=== PATIENT | male | born 1945 | race Caucasian/White ===

== ENCOUNTER 2019-07-30 13:52 | Emergency (ER) | payer OTHER ==
[2019-07-30 15:55] LABS: BASOPHILS % (AUTO) 0.6 % (0.0-5.0); HEMATOCRIT 46.5 % (42-54); LYMPHOCYTES % (AUTO) 16.8 % (21.0-51.0); MEAN CORPUSCULAR HEMOGLOBIN 29.6 pg (27.0-33.0); MEAN CORPUSCULAR VOLUME 87.1 fL (79-99); MONOCYTES % (AUTO) 5.9 % (3.0-13.0); NEUTROPHILS % (AUTO) 74.3 % (40.0-77.0); PLATELET COUNT (AUTO) 222 K/uL (130-400); RED BLOOD CELL COUNT(AUTO) 5.34 MIL/uL (4.50-6.20); WHITE BLOOD COUNT (AUTO) 8.2 K/uL (4.8-10.8)
[2019-07-30 16:11] LABS: CREATININE 1.1 mg/dL (0.5-1.5); POTASSIUM 3.8 mmol/L (3.5-5.1)
[2019-07-30 16:42] LABS: B-TYPE NATRIURETIC PEPTIDE 96 pg/mL (0-100)
[2019-07-30 17:04] LABS: APPEARANCE,URINE CLEAR (CLEAR); BILIRUBIN,URINE NEGATIVE (NEGATIVE); COLOR,URINE YELLOW (YELLOW); GLUCOSE, URINE (UA) NEGATIVE (NEGATIVE); KETONES,URINE NEGATIVE (NEGATIVE); LEUKOCYTE ESTERASE ,URINE NEGATIVE (NEGATIVE); NITRATE,URINE NEGATIVE (NEGATIVE); OCCULT BLOOD,URINE NEGATIVE (NEGATIVE); PH,URINE 5.5 (5.0-8.0); PROTEIN,URINE NEGATIVE (NEGATIVE); UROBILINOGEN,URINE 0.2 mg/dL (0.2-1.0)
== END 2019-07-30 17:40 | disposition home or self-care (01) ==
LOC: EDH 13:52
DX: I10 Essential (primary) hypertension (principal); Z88.0 Allergy status to penicillin; E78.5 Hyperlipidemia, unspecified; Z87.891 Personal history of nicotine dependence
CPT/HCPCS: 36415; 80048; 81003; 82550; 83880; 84484; 85025; 93005

== ENCOUNTER 2020-09-06 15:00 | Inpatient (IN) | payer OTHER ==
[~2020-09-06] VITALS: Ht 172.7 cm; Wt 82.1 kg
[2020-09-06 15:21] LABS: BASOPHILS % (AUTO) 0.2 % (0.0-5.0); EOSINOPHILS % (AUTO) 0.2 % (0.0-8.0); HEMATOCRIT 43.2 % (42-54); LYMPHOCYTES % (AUTO) 10.2 % (21.0-51.0); MEAN CORPUSCULAR HEMOGLOBIN 29.2 pg (27.0-33.0); MEAN CORPUSCULAR HGB CONC 34.5 g/dL (32.0-36.0); MEAN CORPUSCULAR VOLUME 84.7 fL (79-99); MONOCYTES % (AUTO) 5.3 % (3.0-13.0); NEUTROPHILS % (AUTO) 83.5 % (40.0-77.0); PLATELET COUNT (AUTO) 134 K/uL (130-400); RED CELL DISTRIBUTION WIDTH 13.4 % (11.0-15.5); WHITE BLOOD COUNT (AUTO) 4.7 K/uL (4.8-10.8)
[2020-09-06 15:23] LABS: ABG OXYGEN SATURATION 93.6 % (95.0-99.0); ABG PCO2 28 mmHg (35-48)
[2020-09-06] MEDS ORDERED: ALBUTEROL INHALER 90MCG/INH IH ONE (15:32)
[2020-09-06] MEDS ORDERED: DEXAMETHASONE SOD PHOSPHATE 10MG/ML 1ML VIAL ONE (15:33)
[2020-09-06] MEDS ORDERED: AZITHROMYCIN 500MG+NS 250ML 0 ML IV ONE (15:33)
[2020-09-06] MEDS ORDERED: LEVOFLOXACIN 750 MG/D5W 150 ML 150 ML ONE (15:34)
[2020-09-06 15:39] LABS: CREATININE 1.3 mg/dL (0.5-1.5); POTASSIUM 3.8 mmol/L (3.5-5.1)
[2020-09-06 15:43] LABS: ALBUMIN 3.1 g/dL (3.5-5.0); BILIRUBIN,TOTAL 0.5 mg/dL (0.2-1.0); TOTAL PROTEIN, SERUM 7.6 g/dL (6.0-8.3)
[2020-09-06] MEDS ORDERED: LACTULOSE 20 GM/30 ML UDCUP PO PRN (16:30)
[2020-09-06] MEDS ORDERED: ONDANSETRON 4MG INJ IV PRN (16:30)
[2020-09-06] MEDS ORDERED: ERGOCALCIFEROL (VITAMIN D2) 50,000 UNIT CAPSULE PO ONE (16:30)
[2020-09-06] MEDS ORDERED: ACETAMINOPHEN 325 MG TAB PO PRN ×2 (16:30)
[2020-09-06] MEDS: DEXAMETHASONE SOD PHOSPHATE 4 MG/ML 1ML VIAL IVP SCH (16:30)
[2020-09-06 16:43] LABS: PROTHROMBIN TIME 10.9 SEC (9.6-11.6)
[2020-09-06 16:45] LABS: PARTIAL THROMBOPLASTIN TIME 31.6 SEC (26.3-35.5)
[2020-09-06] MEDS ORDERED: PHARMACY COMMUNICATION MISC SCH (16:45)
[2020-09-06] MEDS: AZITHROMYCIN 500MG+NS 250ML 250 ML IV SCH (16:45)
[2020-09-06 16:48] LABS: CRP QUANTITATIVE 133.3 mg/L (0.00-9.0)
[2020-09-06] MEDS ORDERED: AZITHROMYCIN 500MG+NS 250ML 250 ML IV ONE (17:19)
[2020-09-06] MEDS ORDERED: ERGOCALCIFEROL (VITAMIN D2) 50,000 UNIT CAPSULE ONE (17:19)
[2020-09-06] MEDS ORDERED: IOHEXOL 350 MG/ML 100ML INFUS..BTL IV ONE (17:32)
[2020-09-06] MEDS ORDERED: COMPOUND IV REFRIGERATED 1 EACH IVSOLN MISC PRN (18:00)
[2020-09-06] MEDS ORDERED: REMDESIVIR (EUA) 520 200 MG in 0.9% NACL 250ML 250 ML IV ONE (18:00)
[2020-09-06 18:23] LABS: APPEARANCE,URINE Clear (CLEAR); BILIRUBIN,URINE Negative (NEGATIVE); COLOR,URINE Dark Yellow (YELLOW); GLUCOSE, URINE (UA) Negative (NEGATIVE); KETONES,URINE Negative (NEGATIVE); LEUKOCYTE ESTERASE ,URINE Negative (NEGATIVE); NITRATE,URINE Negative (NEGATIVE); OCCULT BLOOD,URINE Negative (NEGATIVE); PROTEIN,URINE Negative (NEGATIVE); UROBILINOGEN,URINE 0.2 mg/dL (0.2-1.0)
[2020-09-06 19:35] VITALS: BP 133/75
[2020-09-06] MEDS: FAMOTIDINE 20MG TAB PO SCH (21:02)
[2020-09-06] MEDS: DOXYCYCLINE HYCLATE 100 MG TABLET PO SCH (21:02)
[2020-09-06 23:24] VITALS: BP 119/65
[2020-09-07 03:47] VITALS: BP 108/68
[2020-09-07] MEDS: REMDESIVIR LABS MISC SCH (06:00)
[2020-09-07 06:03] LABS: HEMATOCRIT 41.7 % (42-54); MEAN CORPUSCULAR HEMOGLOBIN 29.2 pg (27.0-33.0); MEAN CORPUSCULAR HGB CONC 34.1 g/dL (32.0-36.0); MEAN CORPUSCULAR VOLUME 85.8 fL (79-99); MONOCYTES % (AUTO) 5.5 % (3.0-13.0); NEUTROPHILS % (AUTO) 79.5 % (40.0-77.0); PLATELET COUNT (AUTO) 141 K/uL (130-400); RED BLOOD CELL COUNT(AUTO) 4.86 MIL/uL (4.50-6.20); RED CELL DISTRIBUTION WIDTH 13.6 % (11.0-15.5); WHITE BLOOD COUNT (AUTO) 2.5 K/uL (4.8-10.8)
[2020-09-07 06:30] LABS: ALBUMIN 2.8 g/dL (3.5-5.0); BILIRUBIN,TOTAL 0.4 mg/dL (0.2-1.0); CREATININE 1.3 mg/dL (0.5-1.5); CRP QUANTITATIVE 122.1 mg/L (0.00-9.0); TOTAL PROTEIN, SERUM 7.2 g/dL (6.0-8.3)
[2020-09-07 07:04] LABS: BAND NEUTROPHILS % (MANUAL) 3 % (0-2); LYMPHOCYTES % (MANUAL) 6 % (22-44); MONOCYTES % (MANUAL) 8 % (2-9); SEGMENTED NEUTROPHILS % 83 % (40-70)
[2020-09-07 07:05] LABS: MAN.DIFF COMMENT-IMPRESSION MANUAL DIFFERENTIAL
[2020-09-07 07:06] LABS: PLATELET MORPHOLOGY COMMENT SLIGHTLY DECREASED
[2020-09-07 08:05] VITALS: BP 129/68
[2020-09-07] MEDS: DOXYCYCLINE HYCLATE 100 MG TABLET PO SCH (08:44)
[2020-09-07] MEDS: ASCORBIC ACID 500 MG TAB PO SCH (08:44)
[2020-09-07] MEDS: ENOXAPARIN SODIUM 40 MG/0.4 ML SYRINGE SQ SCH (08:45)
[2020-09-07] MEDS ORDERED: ENOXAPARIN SODIUM 40 MG/0.4 ML SYRINGE SQ SCH (09:00)
[2020-09-07] MEDS: ZINC SULFATE 220 CAPSULE PO SCH (12:07)
[2020-09-07 12:15] VITALS: BP 134/76
[2020-09-07] MEDS: CEFTRIAXONE 1G VIAL IVP SCH (14:51)
[2020-09-07] MEDS: AZITHROMYCIN 500MG+NS 250ML 250 ML IV SCH (15:52)
[2020-09-07] MEDS: DEXAMETHASONE SOD PHOSPHATE 4 MG/ML 1ML VIAL IVP SCH (15:52)
[2020-09-07 16:26] VITALS: BP 121/72
[2020-09-07] MEDS: REMDESIVIR (EUA) 520 100 MG in 0.9% NACL 250ML 250 ML IV SCH (17:28)
[2020-09-07] MEDS ORDERED: HYDR25TA PO (18:30)
[2020-09-07] MEDS ORDERED: LOSA50TA64 PO (18:30)
[2020-09-07] MEDS ORDERED: SIMV-43 PO (18:30)
[2020-09-07 19:55] VITALS: BP 123/75
[2020-09-07] MEDS: FAMOTIDINE 20MG TAB PO SCH (20:41)
[2020-09-07 23:35] VITALS: BP 120/72
[2020-09-08 03:52] VITALS: BP 112/70
[2020-09-08 05:44] LABS: HEMATOCRIT 43.4 % (42-54); LYMPHOCYTES % (AUTO) 10.6 % (21.0-51.0); MEAN CORPUSCULAR HEMOGLOBIN 28.8 pg (27.0-33.0); MEAN CORPUSCULAR HGB CONC 33.4 g/dL (32.0-36.0); MEAN CORPUSCULAR VOLUME 86.1 fL (79-99); MONOCYTES % (AUTO) 6.6 % (3.0-13.0); NEUTROPHILS % (AUTO) 82.1 % (40.0-77.0); PLATELET COUNT (AUTO) 190 K/uL (130-400); RED BLOOD CELL COUNT(AUTO) 5.04 MIL/uL (4.50-6.20); RED CELL DISTRIBUTION WIDTH 13.7 % (11.0-15.5); WHITE BLOOD COUNT (AUTO) 5.8 K/uL (4.8-10.8)
[2020-09-08] MEDS: REMDESIVIR LABS MISC SCH (06:00)
[2020-09-08 06:09] LABS: ALBUMIN 2.9 g/dL (3.5-5.0); BILIRUBIN,TOTAL 0.4 mg/dL (0.2-1.0); CREATININE 1.3 mg/dL (0.5-1.5); CRP QUANTITATIVE 53.5 mg/L (0.00-9.0); POTASSIUM 3.9 mmol/L (3.5-5.1); TOTAL PROTEIN, SERUM 7.2 g/dL (6.0-8.3)
[2020-09-08 08:04] VITALS: BP 108/60
[2020-09-08] MEDS: ASCORBIC ACID 500 MG TAB PO SCH (08:52)
[2020-09-08] MEDS: ENOXAPARIN SODIUM 40 MG/0.4 ML SYRINGE SQ SCH (08:53)
[2020-09-08] MEDS ORDERED: IPRATROPIUM/ALBUTEROL SULFATE 3 ML SOLUTION IH PRN (11:00)
[2020-09-08] MEDS: ZINC SULFATE 220 CAPSULE PO SCH (12:26)
[2020-09-08 12:43] VITALS: BP 125/76
[2020-09-08] MEDS: CEFTRIAXONE 1G VIAL IVP SCH (14:50)
[2020-09-08] MEDS: DEXAMETHASONE SOD PHOSPHATE 4 MG/ML 1ML VIAL IVP SCH (15:40)
[2020-09-08 16:54] VITALS: BP 127/68
[2020-09-08] MEDS: REMDESIVIR (EUA) 520 100 MG in 0.9% NACL 250ML 250 ML IV SCH (17:06)
[2020-09-08] MEDS: BUDESONIDE 0.5 MG/2 ML INH IH SCH (17:32)
[2020-09-08] MEDS ORDERED: BUDESONIDE 0.5 MG/2 ML INH IH SCH (18:00)
[2020-09-08 20:19] VITALS: BP 125/68
[2020-09-08] MEDS: FAMOTIDINE 20MG TAB PO SCH (20:45)
[2020-09-08 23:42] VITALS: BP_SYST 123; BP_SYST 130; BP_DIAS 70; BP_DIAS 71
[2020-09-09 03:45] VITALS: BP 113/66
[2020-09-09 05:27] LABS: BASOPHILS % (AUTO) 0.2 % (0.0-5.0); HEMATOCRIT 40.8 % (42-54); LYMPHOCYTES % (AUTO) 8.6 % (21.0-51.0); MEAN CORPUSCULAR HGB CONC 33.6 g/dL (32.0-36.0); MEAN CORPUSCULAR VOLUME 86.4 fL (79-99); MONOCYTES % (AUTO) 7.1 % (3.0-13.0); NEUTROPHILS % (AUTO) 83.5 % (40.0-77.0); PLATELET COUNT (AUTO) 201 K/uL (130-400); RED BLOOD CELL COUNT(AUTO) 4.72 MIL/uL (4.50-6.20); RED CELL DISTRIBUTION WIDTH 13.6 % (11.0-15.5); WHITE BLOOD COUNT (AUTO) 6.3 K/uL (4.8-10.8)
[2020-09-09 05:43] LABS: ALBUMIN 2.6 g/dL (3.5-5.0); BILIRUBIN,TOTAL 0.4 mg/dL (0.2-1.0); CRP QUANTITATIVE 25.2 mg/L (0.00-9.0); POTASSIUM 3.8 mmol/L (3.5-5.1); TOTAL PROTEIN, SERUM 6.4 g/dL (6.0-8.3)
[2020-09-09] MEDS: BUDESONIDE 0.5 MG/2 ML INH IH SCH ×2 (06:00→15:52)
[2020-09-09] MEDS: REMDESIVIR LABS MISC SCH (06:00)
[2020-09-09 08:41] VITALS: BP 132/70
[2020-09-09] MEDS: AZITHROMYCIN 250 MG TABLET PO SCH (09:41)
[2020-09-09] MEDS: ASCORBIC ACID 500 MG TAB PO SCH (09:41)
[2020-09-09] MEDS: ENOXAPARIN SODIUM 40 MG/0.4 ML SYRINGE SQ SCH (09:42)
[2020-09-09] MEDS: CEFTRIAXONE 1G VIAL IVP SCH (13:12)
[2020-09-09] MEDS: ZINC SULFATE 220 CAPSULE PO SCH (13:12)
[2020-09-09 13:19] VITALS: BP 136/74
[2020-09-09] MEDS: DEXAMETHASONE SOD PHOSPHATE 4 MG/ML 1ML VIAL IVP SCH (15:52)
[2020-09-09 16:58] VITALS: BP 149/91
[2020-09-09] MEDS: REMDESIVIR (EUA) 520 100 MG in 0.9% NACL 250ML 250 ML IV SCH (18:10)
[2020-09-09 20:19] VITALS: BP 134/65
[2020-09-09] MEDS: FAMOTIDINE 20MG TAB PO SCH (21:24)
[2020-09-09 23:53] VITALS: BP 146/81
[2020-09-10 03:17] VITALS: BP 132/77
[2020-09-10 05:16] LABS: BASOPHILS % (AUTO) 0.2 % (0.0-5.0); HEMATOCRIT 40.8 % (42-54); MEAN CORPUSCULAR HEMOGLOBIN 28.6 pg (27.0-33.0); MEAN CORPUSCULAR HGB CONC 33.1 g/dL (32.0-36.0); MEAN CORPUSCULAR VOLUME 86.4 fL (79-99); MONOCYTES % (AUTO) 5.5 % (3.0-13.0); NEUTROPHILS % (AUTO) 84.5 % (40.0-77.0); PLATELET COUNT (AUTO) 208 K/uL (130-400); RED BLOOD CELL COUNT(AUTO) 4.72 MIL/uL (4.50-6.20); RED CELL DISTRIBUTION WIDTH 13.5 % (11.0-15.5); WHITE BLOOD COUNT (AUTO) 6.6 K/uL (4.8-10.8)
[2020-09-10 05:33] LABS: ALBUMIN 2.6 g/dL (3.5-5.0); BILIRUBIN,DIRECT 0.1 mg/dL (0.0-0.3); BILIRUBIN,TOTAL 0.5 mg/dL (0.2-1.0); CREATININE 1.1 mg/dL (0.5-1.5); TOTAL PROTEIN, SERUM 6.5 g/dL (6.0-8.3)
[2020-09-10] MEDS: BUDESONIDE 0.5 MG/2 ML INH IH SCH (06:00)
[2020-09-10] MEDS: REMDESIVIR LABS MISC SCH (06:00)
[2020-09-10 08:31] VITALS: BP 152/76
[2020-09-10] MEDS: AZITHROMYCIN 250 MG TABLET PO SCH (08:33)
[2020-09-10] MEDS: ASCORBIC ACID 500 MG TAB PO SCH (08:33)
[2020-09-10] MEDS: ENOXAPARIN SODIUM 40 MG/0.4 ML SYRINGE SQ SCH (08:34)
[2020-09-10 12:13] VITALS: BP 136/80
[2020-09-10] MEDS: CEFTRIAXONE 1G VIAL IVP SCH (12:52)
[2020-09-10] MEDS: ZINC SULFATE 220 CAPSULE PO SCH (12:52)
[2020-09-10 16:13] VITALS: BP 137/82
[2020-09-10] MEDS: REMDESIVIR (EUA) 520 100 MG in 0.9% NACL 250ML 250 ML IV SCH (16:33)
[2020-09-10] MEDS: DEXAMETHASONE SOD PHOSPHATE 4 MG/ML 1ML VIAL IVP SCH (16:33)
[2020-09-10 19:39] VITALS: BP 117/72
[2020-09-10] MEDS: FAMOTIDINE 20MG TAB PO SCH (20:59)
[2020-09-10 23:41] VITALS: BP 105/70
[2020-09-11 03:32] VITALS: BP 124/72
[2020-09-11] MEDS: BUDESONIDE 0.5 MG/2 ML INH IH SCH (06:00)
[2020-09-11] MEDS: REMDESIVIR LABS MISC SCH (06:00)
[2020-09-11 06:15] LABS: BASOPHILS % (AUTO) 0.5 % (0.0-5.0); HEMATOCRIT 41.5 % (42-54); LYMPHOCYTES % (AUTO) 11.1 % (21.0-51.0); MEAN CORPUSCULAR HGB CONC 33.7 g/dL (32.0-36.0); MEAN CORPUSCULAR VOLUME 85.9 fL (79-99); MONOCYTES % (AUTO) 6.1 % (3.0-13.0); NEUTROPHILS % (AUTO) 80.3 % (40.0-77.0); PLATELET COUNT (AUTO) 250 K/uL (130-400); RED BLOOD CELL COUNT(AUTO) 4.83 MIL/uL (4.50-6.20); RED CELL DISTRIBUTION WIDTH 13.3 % (11.0-15.5); WHITE BLOOD COUNT (AUTO) 6.4 K/uL (4.8-10.8)
[2020-09-11 06:32] LABS: ALBUMIN 2.7 g/dL (3.5-5.0); BILIRUBIN,TOTAL 0.7 mg/dL (0.2-1.0); CREATININE 1.1 mg/dL (0.5-1.5); CRP QUANTITATIVE 24.1 mg/L (0.00-9.0); POTASSIUM 3.8 mmol/L (3.5-5.1); TOTAL PROTEIN, SERUM 6.6 g/dL (6.0-8.3)
[2020-09-11 08:00] VITALS: BP 141/71
[2020-09-11] MEDS: AZITHROMYCIN 250 MG TABLET PO SCH (08:58)
[2020-09-11] MEDS: ENOXAPARIN SODIUM 40 MG/0.4 ML SYRINGE SQ SCH (08:58)
[2020-09-11 12:00] VITALS: BP 123/75
[2020-09-11] MEDS ORDERED: BUDE90AE IH (13:07)
[2020-09-11] MEDS ORDERED: DEXA6TAB PO (13:07)
[2020-09-11] MEDS ORDERED: AZIT250T PO (13:07)
[2020-09-11] MEDS ORDERED: APIX2.5T PO (13:07)
[2020-09-11] MEDS ORDERED: PANT40TA55 PO (13:19)
== END 2020-09-11 16:11 | disposition home or self-care (01) | DRG 871 ==
LOC: EDH 15:00 → EDHIP 16:27 → 2AH 18:45
PROVIDERS: ADMIT Internal Medicine; ATTEND Internal Medicine
PROC: XW033E5 Introduction of Remdesivir Anti-infective into Peripheral Vein, Percutaneous Approach, New Technology Group 5 (ICD-10-PCS; principal; 2020-09-06)
PROC: 5A09357 Assistance with Respiratory Ventilation, Less than 24 Consecutive Hours, Continuous Positive Airway Pressure (ICD-10-PCS; 2020-09-07)
PROC: 5A0935A Assistance with Respiratory Ventilation, Less than 24 Consecutive Hours, High Flow/Velocity Cannula (ICD-10-PCS; 2020-09-08)
DX: A41.89 Other specified sepsis (principal); U07.1 COVID-19; J12.82 Pneumonia due to coronavirus disease 2019; J96.21 Acute and chronic respiratory failure with hypoxia; J44.0 Chronic obstructive pulmonary disease with (acute) lower respiratory infection; E87.1 Hypo-osmolality and hyponatremia; J44.1 Chronic obstructive pulmonary disease with (acute) exacerbation; G47.33 Obstructive sleep apnea (adult) (pediatric); N18.30 Chronic kidney disease, stage 3 unspecified; I12.9 Hypertensive chronic kidney disease with stage 1 through stage 4 chronic kidney disease, or unspecified chronic kidney disease; D72.810 Lymphocytopenia; E66.9 Obesity, unspecified; K44.9 Diaphragmatic hernia without obstruction or gangrene; R91.1 Solitary pulmonary nodule; E78.5 Hyperlipidemia, unspecified; N40.0 Benign prostatic hyperplasia without lower urinary tract symptoms; Z87.891 Personal history of nicotine dependence; Z88.0 Allergy status to penicillin; Z68.35 Body mass index [BMI] 35.0-35.9, adult
CPT/HCPCS: 36415; 36600; 71045; 71275; 80048; 80053; 80076; 81003; 82550; 82728; 82803; 82948; 83605; 83615; 83690; 83880; 84145; 84484; 85025; 85378; 85610; 85730; 86140; 86900; 86901; 87040; 87426; 87486; 87581; 87633; 87798; 93005; 94760; G0378; J0456; J0696; J1100; J1650; J1956; J7050; Q9967

== ENCOUNTER 2020-09-20 02:04 | Inpatient (IN) | payer MEDICARE, OTHER ==
[~2020-09-20] VITALS: Ht 172.7 cm; Wt 79.1 kg
[~2020-09-20 02:04] MED LIST: APIX2.5T PO; AZIT250T PO; BUDE90AE IH; DEXA6TAB PO; LOSA50TA64 PO; PANT40TA55 PO; SIMV-43 PO
[2020-09-20 02:42] LABS: BASOPHILS % (AUTO) 0.4 % (0.0-5.0); LYMPHOCYTES % (AUTO) 6.6 % (21.0-51.0); MEAN CORPUSCULAR HEMOGLOBIN 29.7 pg (27.0-33.0); MEAN CORPUSCULAR VOLUME 87.4 fL (79-99); MONOCYTES % (AUTO) 6.9 % (3.0-13.0); NEUTROPHILS % (AUTO) 84.2 % (40.0-77.0); PLATELET COUNT (AUTO) 334 K/uL (130-400); RED BLOOD CELL COUNT(AUTO) 5.49 MIL/uL (4.50-6.20); RED CELL DISTRIBUTION WIDTH 14.1 % (11.0-15.5); WHITE BLOOD COUNT (AUTO) 24.2 K/uL (4.8-10.8)
[2020-09-20 02:53] LABS: INR 1.17 (0.85-1.15); PROTHROMBIN TIME 12.6 SEC (9.6-11.6)
[2020-09-20 02:54] LABS: PARTIAL THROMBOPLASTIN TIME 30.7 SEC (26.3-35.5)
[2020-09-20 02:55] LABS: CREATININE 1.8 mg/dL (0.5-1.5); POTASSIUM 3.9 mmol/L (3.5-5.1)
[2020-09-20] MEDS ORDERED: DILTIAZEM 50MG VIAL IV ONE (02:58)
[2020-09-20 02:59] LABS: ALBUMIN 2.8 g/dL (3.5-5.0); BILIRUBIN,TOTAL 1.9 mg/dL (0.2-1.0); TOTAL PROTEIN, SERUM 7.4 g/dL (6.0-8.3)
[2020-09-20 03:30] LABS: CRP QUANTITATIVE 203.5 mg/L (0.00-9.0)
[2020-09-20] MEDS ORDERED: IOHEXOL 350 MG/ML 100ML INFUS..BTL IV ONE (03:35)
[2020-09-20] MEDS ORDERED: 0.9%NACL 1000ML 1,000 ML IV ONE (03:38)
[2020-09-20] MEDS ORDERED: MIDAZOLAM HCL 1 MG/ML 2ML VIAL ONE (03:39)
[2020-09-20] MEDS ORDERED: AMIODARONE 150MG VIAL ONE ×3 (04:04→04:09)
[2020-09-20 07:15] LABS: APPEARANCE,URINE Clear (CLEAR); BILIRUBIN,URINE Negative (NEGATIVE); COLOR,URINE Yellow (YELLOW); GLUCOSE, URINE (UA) Negative (NEGATIVE); KETONES,URINE Trace mg/dL (NEGATIVE); LEUKOCYTE ESTERASE ,URINE Negative (NEGATIVE); NITRATE,URINE Negative (NEGATIVE); OCCULT BLOOD,URINE Negative (NEGATIVE); PROTEIN,URINE Negative (NEGATIVE)
[2020-09-20 07:32] LABS: HEMOGLOBIN A1C 6.1 % (4.0-6.0)
[2020-09-20 07:48] LABS: MAGNESIUM 2.1 mg/dL (1.80-2.40)
[2020-09-20 07:49] LABS: THYROID STIMULATING HORMONE 1.59 uIU/mL (0.36-3.74)
[2020-09-20 08:01] LABS: BACTERIA,URINE Rare /HPF (None Seen); RBC,URINE None Seen /HPF (0-1); WBC,URINE 0-1 /HPF (0-1)
[2020-09-20] MEDS ORDERED: FAMOTIDINE 20MG VIAL IV ONE (08:38)
[2020-09-20] MEDS ORDERED: METOPROLOL TARTRATE 25 MG TAB ONE (08:38)
[2020-09-20] MEDS: METOPROLOL TARTRATE 25 MG TAB PO SCH ×2 (09:00→19:54)
[2020-09-20 15:14] VITALS: BP 105/62
[2020-09-20] MEDS ORDERED: HYDR12.54 PO (16:07)
[2020-09-20] MEDS: APIXABAN 5 MG TABLET PO SCH ×2 (17:13→19:54)
[2020-09-20] MEDS: FAMOTIDINE 20MG VIAL IV SCH (17:18)
[2020-09-20] MEDS: AMIODARONE 900MG VIAL 900 MG in DEXTROSE 5%-WATER 500 ML IV SCH (18:31)
[2020-09-20] MEDS: AMIODARONE 200 MG TABLET PO SCH (19:54)
[2020-09-20] MEDS: ATORVASTATIN 20 MG TABLET PO SCH (19:54)
[2020-09-20 20:00] VITALS: BP 143/73
[2020-09-21] VITALS (7 sets, daily range): BP systolic 100–127; BP diastolic 57–74
[2020-09-21 06:00] LABS: BASOPHILS % (AUTO) 0.1 % (0.0-5.0); EOSINOPHILS % (AUTO) 0.4 % (0.0-8.0); HEMATOCRIT 37.5 % (42-54); LYMPHOCYTES % (AUTO) 6.4 % (21.0-51.0); MEAN CORPUSCULAR HGB CONC 32.8 g/dL (32.0-36.0); MEAN CORPUSCULAR VOLUME 88.4 fL (79-99); MONOCYTES % (AUTO) 8.4 % (3.0-13.0); NEUTROPHILS % (AUTO) 83.6 % (40.0-77.0); PLATELET COUNT (AUTO) 203 K/uL (130-400); RED BLOOD CELL COUNT(AUTO) 4.24 MIL/uL (4.50-6.20); RED CELL DISTRIBUTION WIDTH 13.9 % (11.0-15.5); WHITE BLOOD COUNT (AUTO) 16.1 K/uL (4.8-10.8)
[2020-09-21 06:24] LABS: CARBON DIOXIDE 25 mmol/L (21-32); CHLORIDE 105 mmol/L (101-111); CREATINE KINASE, TOTAL 59 U/L (21-232); CREATININE 1.3 mg/dL (0.5-1.5); GLOMERULAR FILTR. RATE CALC 57 mL/min (>60); GLUCOSE,RANDOM 106 mg/dL (70-105); MYOGLOBIN 71 ng/mL (10-92); POTASSIUM 3.9 mmol/L (3.5-5.1); SODIUM SERUM 139 mmol/L (136-145); TROPONIN I < 0.04 ng/mL (0.00-0.06); UREA NITROGEN, BLOOD 22 mg/dL (7-18)
[2020-09-21 06:34] LABS: B-TYPE NATRIURETIC PEPTIDE 331 pg/mL (0-100)
[2020-09-21] MEDS: APIXABAN 5 MG TABLET PO SCH ×2 (08:00→21:11)
[2020-09-21] MEDS: AMIODARONE 200 MG TABLET PO SCH ×2 (08:00→21:11)
[2020-09-21] MEDS: METOPROLOL TARTRATE 25 MG TAB PO SCH ×2 (08:01→21:11)
[2020-09-21] MEDS: FAMOTIDINE 20MG VIAL IV SCH (08:01)
[2020-09-21] MEDS ORDERED: APIX5TAB PO (08:45)
[2020-09-21] MEDS ORDERED: FUROSEMIDE 20MG VIAL IV SCH (09:00)
[2020-09-21] MEDS ORDERED: KCL 20 MEQ ERTAB PO SCH (09:00)
[2020-09-21] MEDS: PHARMACY COMMUNICATION MISC SCH ×2 (17:00→21:12)
[2020-09-21] MEDS: TROLAMINE SALICYLATE CREAM 85 GM TUBE TP PRN (18:01)
[2020-09-21] MEDS: AMIODARONE 900MG VIAL 900 MG in DEXTROSE 5%-WATER 500 ML IV SCH (18:02)
[2020-09-21] MEDS: ATORVASTATIN 20 MG TABLET PO SCH (21:11)
[2020-09-22] MEDS: TROLAMINE SALICYLATE CREAM 85 GM TUBE TP PRN (02:19)
[2020-09-22 04:20] VITALS: BP 112/66
[2020-09-22 04:23] LABS: HEMATOCRIT 38.9 % (42-54); MEAN CORPUSCULAR HEMOGLOBIN 29.6 pg (27.0-33.0); MEAN CORPUSCULAR HGB CONC 33.7 g/dL (32.0-36.0); RED BLOOD CELL COUNT(AUTO) 4.42 MIL/uL (4.50-6.20); RED CELL DISTRIBUTION WIDTH 13.7 % (11.0-15.5); WHITE BLOOD COUNT (AUTO) 15.6 K/uL (4.8-10.8)
[2020-09-22 04:41] LABS: CREATININE 1.3 mg/dL (0.5-1.5); POTASSIUM 3.9 mmol/L (3.5-5.1); URIC ACID 6.2 mg/dL (2.6-7.2)
[2020-09-22] MEDS: PHARMACY COMMUNICATION MISC SCH ×4 (05:00→21:13)
[2020-09-22 05:20] LABS: CRP QUANTITATIVE 247.1 mg/L (0.00-9.0)
[2020-09-22] MEDS: KETOROLAC 30MG VIAL (30MG/ML) IV PRN (05:48)
[2020-09-22 07:52] VITALS: BP 92/54
[2020-09-22] MEDS: FAMOTIDINE 20MG VIAL IV SCH (09:00)
[2020-09-22] MEDS: AMIODARONE 200 MG TABLET PO SCH ×2 (09:00→21:12)
[2020-09-22] MEDS: APIXABAN 5 MG TABLET PO SCH ×3 (09:01→21:13)
[2020-09-22] MEDS: METOPROLOL TARTRATE 25 MG TAB PO SCH ×2 (09:01→21:13)
[2020-09-22 11:08] VITALS: BP 94/57
[2020-09-22 16:00] VITALS: BP 95/47
[2020-09-22 19:00] VITALS: BP 96/58
[2020-09-22] MEDS: ATORVASTATIN 20 MG TABLET PO SCH (21:12)
[2020-09-23] VITALS: BP 101/60
[2020-09-23 04:00] VITALS: BP 95/50
[2020-09-23] MEDS: PHARMACY COMMUNICATION MISC SCH ×2 (05:00→23:00)
[2020-09-23 05:12] LABS: BASOPHILS % (AUTO) 0.2 % (0.0-5.0); EOSINOPHILS % (AUTO) 0.4 % (0.0-8.0); HEMATOCRIT 40.6 % (42-54); LYMPHOCYTES % (AUTO) 6.6 % (21.0-51.0); MEAN CORPUSCULAR HEMOGLOBIN 28.6 pg (27.0-33.0); MEAN CORPUSCULAR HGB CONC 32.8 g/dL (32.0-36.0); MEAN CORPUSCULAR VOLUME 87.3 fL (79-99); MONOCYTES % (AUTO) 6.8 % (3.0-13.0); NEUTROPHILS % (AUTO) 85.1 % (40.0-77.0); PLATELET COUNT (AUTO) 249 K/uL (130-400); RED BLOOD CELL COUNT(AUTO) 4.65 MIL/uL (4.50-6.20); RED CELL DISTRIBUTION WIDTH 14.1 % (11.0-15.5); WHITE BLOOD COUNT (AUTO) 15.3 K/uL (4.8-10.8)
[2020-09-23 05:26] LABS: CREATININE 1.5 mg/dL (0.5-1.5); POTASSIUM 3.7 mmol/L (3.5-5.1)
[2020-09-23] MEDS: APIXABAN 5 MG TABLET PO SCH (08:18)
[2020-09-23] MEDS: METOPROLOL TARTRATE 25 MG TAB PO SCH (08:18)
[2020-09-23] MEDS: FAMOTIDINE 20MG VIAL IV SCH (08:18)
[2020-09-23] MEDS: AMIODARONE 200 MG TABLET PO SCH ×4 (08:19→15:34)
[2020-09-23 08:46] VITALS: BP 111/69
[2020-09-23] MEDS: KETOROLAC 30MG VIAL (30MG/ML) IV PRN (10:24)
[2020-09-23 12:07] VITALS: BP 95/53
[2020-09-23 16:00] VITALS: BP 93/55
[2020-09-23 19:00] VITALS: BP 111/63
[2020-09-24] VITALS: BP 116/69
[2020-09-24] MEDS: METOPROLOL TARTRATE 25 MG TAB PO SCH ×3 (00:09→20:28)
[2020-09-24] MEDS: APIXABAN 5 MG TABLET PO SCH ×3 (00:10→20:28)
[2020-09-24] MEDS: ATORVASTATIN 20 MG TABLET PO SCH ×2 (00:10→20:28)
[2020-09-24] MEDS: AMIODARONE 200 MG TABLET PO SCH ×4 (00:10→20:28)
[2020-09-24] MEDS: PHARMACY COMMUNICATION MISC SCH ×6 (00:10→23:01)
[2020-09-24 03:56] LABS: BASOPHILS % (AUTO) 0.3 % (0.0-5.0); EOSINOPHILS % (AUTO) 2.7 % (0.0-8.0); HEMATOCRIT 37.4 % (42-54); LYMPHOCYTES % (AUTO) 9.8 % (21.0-51.0); MEAN CORPUSCULAR HEMOGLOBIN 28.9 pg (27.0-33.0); MEAN CORPUSCULAR HGB CONC 33.4 g/dL (32.0-36.0); MEAN CORPUSCULAR VOLUME 86.4 fL (79-99); MONOCYTES % (AUTO) 6.4 % (3.0-13.0); NEUTROPHILS % (AUTO) 80.3 % (40.0-77.0); PLATELET COUNT (AUTO) 217 K/uL (130-400); RED BLOOD CELL COUNT(AUTO) 4.33 MIL/uL (4.50-6.20); RED CELL DISTRIBUTION WIDTH 13.9 % (11.0-15.5); WHITE BLOOD COUNT (AUTO) 10.6 K/uL (4.8-10.8)
[2020-09-24 04:00] VITALS: BP 94/60
[2020-09-24 04:18] LABS: ALBUMIN 1.7 g/dL (3.5-5.0); B-TYPE NATRIURETIC PEPTIDE 779 pg/mL (0-100); BILIRUBIN,TOTAL 0.8 mg/dL (0.2-1.0); CREATININE 1.4 mg/dL (0.5-1.5); POTASSIUM 3.6 mmol/L (3.5-5.1); TOTAL PROTEIN, SERUM 6.5 g/dL (6.0-8.3)
[2020-09-24 04:26] LABS: CRP QUANTITATIVE 271.6 mg/L (0.00-9.0)
[2020-09-24 07:59] VITALS: BP 114/64
[2020-09-24] MEDS: FAMOTIDINE 20MG VIAL IV SCH (08:39)
[2020-09-24 09:52] LABS: INR 1.22 (0.85-1.15); PROTHROMBIN TIME 13.1 SEC (9.6-11.6)
[2020-09-24] MEDS ORDERED: REGADENOSON 0.4 MG/5 ML PF SYG IVP SCH (11:00)
[2020-09-24 12:00] VITALS: BP_SYST 109; BP_SYST 127; BP_DIAS 61; BP_DIAS 84
[2020-09-24] MEDS: AZITHROMYCIN 500MG+NS 250ML 250 ML IV SCH (13:34)
[2020-09-24] MEDS: KETOROLAC 30MG VIAL (30MG/ML) IV PRN (13:34)
[2020-09-24 16:00] VITALS: BP 92/57
[2020-09-24 19:00] VITALS: BP 101/62
[2020-09-25] VITALS (9 sets, daily range): BP systolic 100–142; BP diastolic 60–80
[2020-09-25] MEDS: PHARMACY COMMUNICATION MISC SCH ×4 (06:42→23:41)
[2020-09-25] MEDS ORDERED: ATOR20TA65 PO (06:54)
[2020-09-25] MEDS ORDERED: AMIO200T44 PO (06:54)
[2020-09-25] MEDS ORDERED: APIX5TAB PO (06:54)
[2020-09-25] MEDS: AZITHROMYCIN 500MG+NS 250ML 250 ML IV SCH (09:00)
[2020-09-25] MEDS: AMIODARONE 200 MG TABLET PO SCH ×2 (09:01→20:11)
[2020-09-25] MEDS: APIXABAN 5 MG TABLET PO SCH ×2 (09:01→20:11)
[2020-09-25] MEDS: FAMOTIDINE 20MG VIAL IV SCH (09:01)
[2020-09-25] MEDS: ATORVASTATIN 20 MG TABLET PO SCH (20:11)
[2020-09-26 04:23] VITALS: BP 139/73
[2020-09-26] MEDS: PHARMACY COMMUNICATION MISC SCH (05:24)
[2020-09-26 08:13] VITALS: BP 120/95
[2020-09-26] MEDS: AMIODARONE 200 MG TABLET PO SCH (09:47)
[2020-09-26] MEDS: APIXABAN 5 MG TABLET PO SCH (09:48)
[2020-09-26] MEDS: FAMOTIDINE 20MG VIAL IV SCH (09:48)
[2020-09-26] MEDS: AZITHROMYCIN 500MG+NS 250ML 250 ML IV SCH (09:50)
[2020-09-26 12:02] VITALS: BP 134/72
[2020-09-26 16:54] VITALS: BP 143/82
[2020-09-26 16:55] VITALS: BP 131/70
== END 2020-09-26 19:35 | DRG 308 ==
LOC: EDH 02:04 → EDHIP 05:14 → 2AH 14:55 → 4AH 09-22 09:56
PROVIDERS: ADMIT Internal Medicine; ATTEND Internal Medicine
DX: I48.92 Unspecified atrial flutter (principal); I50.31 Acute diastolic (congestive) heart failure; I13.0 Hypertensive heart and chronic kidney disease with heart failure and stage 1 through stage 4 chronic kidney disease, or unspecified chronic kidney disease; I24.8 Other forms of acute ischemic heart disease; N17.9 Acute kidney failure, unspecified; I82.622 Acute embolism and thrombosis of deep veins of left upper extremity; I48.0 Paroxysmal atrial fibrillation; N18.31 Chronic kidney disease, stage 3a; E78.5 Hyperlipidemia, unspecified; G47.33 Obstructive sleep apnea (adult) (pediatric); G89.29 Other chronic pain; J43.9 Emphysema, unspecified; N40.0 Benign prostatic hyperplasia without lower urinary tract symptoms; Z79.01 Long term (current) use of anticoagulants; Z79.899 Other long term (current) drug therapy; Z80.9 Family history of malignant neoplasm, unspecified; Z82.5 Family history of asthma and other chronic lower respiratory diseases; Z87.891 Personal history of nicotine dependence; Z88.0 Allergy status to penicillin; Z86.16 Personal history of COVID-19
CPT/HCPCS: 36415; 71045; 73562; 76882; 78452; 78582; 80048; 80053; 80061; 81001; 82550; 82948; 83036; 83605; 83735; 83874; 83880; 84145; 84443; 84484; 84550; 85025; 85027; 85378; 85610; 85651; 85730; 86140; 87040; 87426; 93005; 93017; 93306; 93971; 94760; 96374; 97039; A9500; A9540; A9558; G0378; J0282; J0456; J1885; J1940; J2250; J2785; J3490; J7030; J7060; Q9967; U0003

== ENCOUNTER 2021-10-16 09:00 | Inpatient (IN) | payer OTHER ==
[~2021-10-16] VITALS: Ht 172.7 cm; Wt 78.8 kg
[~2021-10-16 09:00] MED LIST changes: -APIX2.5T PO; +APIX5TAB PO; -AZIT250T PO; -BUDE90AE IH; -DEXA6TAB PO; -LOSA50TA64 PO; -PANT40TA55 PO; -SIMV-43 PO
[2021-10-16 09:45] VITALS: BP 148/79
[2021-10-16 10:57] LABS: APPEARANCE,URINE Clear (CLEAR); BILIRUBIN,URINE Negative (NEGATIVE); COLOR,URINE Yellow (YELLOW); GLUCOSE, URINE (UA) Negative (NEGATIVE); KETONES,URINE Negative (NEGATIVE); LEUKOCYTE ESTERASE ,URINE Negative (NEGATIVE); NITRATE,URINE Negative (NEGATIVE); OCCULT BLOOD,URINE Nonhemolyzed Trace (NEGATIVE); PROTEIN,URINE Negative (NEGATIVE); UROBILINOGEN,URINE 0.2 mg/dL (0.2-1.0)
[2021-10-16 10:59] LABS: BASOPHILS % (AUTO) 0.8 % (0.0-5.0); EOSINOPHILS % (AUTO) 2.2 % (0.0-8.0); HEMATOCRIT 45.5 % (42-54); LYMPHOCYTES % (AUTO) 21.8 % (21.0-51.0); MEAN CORPUSCULAR HGB CONC 33.2 g/dL (32.0-36.0); MEAN CORPUSCULAR VOLUME 87.5 fL (79-99); MONOCYTES % (AUTO) 6.3 % (3.0-13.0); NEUTROPHILS % (AUTO) 68.5 % (40.0-77.0); PLATELET COUNT (AUTO) 191 K/uL (130-400); WHITE BLOOD COUNT (AUTO) 7.4 K/uL (4.8-10.8)
[2021-10-16 11:03] LABS: BACTERIA,URINE Rare /HPF (None Seen); RBC,URINE 0-1 /HPF (0-1); SQUAMOUS EPITHELIAL CELL,UR Rare /HPF (0-2)
[2021-10-16 11:12] LABS: INR 1.07 (0.85-1.15); PROTHROMBIN TIME 11.6 SEC (9.6-11.6)
[2021-10-17] MEDS ORDERED: LOSA50TA64 PO (09:16)
[2021-10-17] MEDS ORDERED: ATOR40TA71 PO (09:16)
[2021-10-17] MEDS ORDERED: ACET-2743 PO (09:16)
[2021-10-17] MEDS ORDERED: HYDR25TA PO (09:16)
[2021-10-20] VITALS (24 sets, daily range): BP systolic 117–190; BP diastolic 67–103
[2021-10-20] MEDS ORDERED: CEFAZOLIN SODIUM 1 GM VIAL IVP ONE (08:00)
[2021-10-20] MEDS ORDERED: CLINDAMYCIN IVPB 900MG/50ML 50 ML IV ONE (08:58)
[2021-10-20] MEDS ORDERED: LACTATED RINGERS 1000ML 1,000 ML IV ONE (08:58)
[2021-10-20] MEDS ORDERED: CELECOXIB 200 MG CAP ONE (10:06)
[2021-10-20] MEDS ORDERED: KETOROLAC 15MG/ML VIAL (15MG/ML) ONE (10:06)
[2021-10-20] MEDS ORDERED: ACETAMINOPHEN 500 MG TABLET ONE (10:06)
[2021-10-20] MEDS ORDERED: LIDOCAINE PF 100MG/5ML (2%) SYRINGE 5ML ONE (10:15)
[2021-10-20] MEDS ORDERED: SUCCINYLCHOLINE CHLORIDE 20 MG/ML 10 ML VIAL ONE (10:15)
[2021-10-20] MEDS ORDERED: DEXAMETHASONE SOD PHOSPHATE 10MG/ML 1ML VIAL ONE (10:16)
[2021-10-20] MEDS ORDERED: GLYCOPYRROLATE 1 MG/5 ML SYRINGE ONE ×2 (10:16→14:40)
[2021-10-20] MEDS ORDERED: MIDAZOLAM HCL 1 MG/ML 2ML VIAL ONE (10:16)
[2021-10-20] MEDS ORDERED: ONDANSETRON 4MG INJ ONE (10:17)
[2021-10-20] MEDS ORDERED: ROCURONIUM 10MG/1ML SYR 10 MG/ML ML ONE (10:17)
[2021-10-20] MEDS ORDERED: PROPOFOL 10 MG/ML 20ML VIAL IV ONE (10:17)
[2021-10-20] MEDS ORDERED: NEOSTIGMINE 5MG/5ML SYR IV ONE (10:17)
[2021-10-20] MEDS ORDERED: FENTANYL CITRATE PF 50 MCG/1 ML 2ML VIAL ONE (10:20)
[2021-10-20] MEDS ORDERED: CEFAZOLIN SODIUM 1 GM VIAL ONE (11:05)
[2021-10-20] MEDS ORDERED: VANCOMYCIN 1G/250ML KIT 250 ML IV ONE (11:07)
[2021-10-20] MEDS ORDERED: CLINDAMYCIN 900MG/6ML INJ IVPB ONE (11:35)
[2021-10-20] MEDS ORDERED: VANCOMYCIN 1G VIAL ONE (11:42)
[2021-10-20] MEDS ORDERED: VANCOMYCIN KIT 1 GM/250 ML IV.KIT IV ONE (11:46)
[2021-10-20] MEDS ORDERED: EPHEDRINE SULFATE 50 MG/ML AMPULE ONE (12:06)
[2021-10-20] MEDS ORDERED: VANCOMYCIN 1G VIAL IRRIG ONE (12:10)
[2021-10-20] MEDS ORDERED: CEFAZOLIN SODIUM 1 GM VIAL IRRIG ONE (12:10)
[2021-10-20] MEDS ORDERED: TRANEXAMIC ACID 1000MG/10ML ONE (13:16)
[2021-10-20] MEDS ORDERED: PHENYLEPHRINE HCL 10 MG/ML 1ML VIAL IV ONE (13:21)
[2021-10-20] MEDS ORDERED: TRANEXAMIC ACID 1000MG/10ML IJ ONE (13:30)
[2021-10-20] MEDS ORDERED: FERROUS FUMARATE 324 MG TABLET PO PRN (14:00)
[2021-10-20] MEDS ORDERED: CALCIUM CARB 500MG PO PRN (14:00)
[2021-10-20] MEDS ORDERED: KETOROLAC 15MG/ML VIAL (15MG/ML) IV PRN (14:00)
[2021-10-20] MEDS ORDERED: KCL 20 MEQ ERTAB PO PRN (14:00)
[2021-10-20] MEDS ORDERED: OXYCODONE HCL 5 MG TAB PO PRN (14:00)
[2021-10-20] MEDS ORDERED: VANCOMYCIN PROTOCOL PER PHARMACY IV SCH (14:00)
[2021-10-20] MEDS ORDERED: LIDOCAINE HCL-MPF 1% 2ML VIAL IV PRN (14:00)
[2021-10-20] MEDS ORDERED: DiphenhydrAMINE HCL 50 MG/ML VIAL IVP PRN (14:00)
[2021-10-20] MEDS ORDERED: TRAMADOL HCL 50 MG TABLET PO PRN (14:00)
[2021-10-20] MEDS ORDERED: ONDANSETRON 4MG INJ IVP PRN (14:00)
[2021-10-20] MEDS: ACETAMINOPHEN 500 MG TABLET PO SCH ×2 (14:00→21:29)
[2021-10-20] MEDS ORDERED: POTASSIUM CHLORIDE 20MEQ/100ML 100 ML IV PRN (14:00)
[2021-10-20] MEDS ORDERED: POTASSIUM CHLORIDE 10% ELIXIR 20 MEQ/15 ML UDCUP PO PRN (14:00)
[2021-10-20] MEDS ORDERED: TEMAZEPAM 15 MG CAPSULE PO PRN (14:00)
[2021-10-20] MEDS ORDERED: MEPERIDINE-PF 25 MG/ML SYG ONE (14:32)
[2021-10-20] MEDS: 0.9%NACL 1000ML 1,000 ML IV SCH (15:57)
[2021-10-20] MEDS ORDERED: HYDROCHLOROTHIAZIDE 25 MG TABLET ONE (17:04)
[2021-10-20] MEDS: PREGABALIN 25 MG CAP PO SCH (21:27)
[2021-10-20] MEDS: ATORVASTATIN 40 MG TABLET PO SCH (21:27)
[2021-10-20] MEDS: FAMOTIDINE 20MG TAB PO SCH (21:27)
[2021-10-20] MEDS: CELECOXIB 200 MG CAP PO SCH (21:27)
[2021-10-20] MEDS: OXYCODONE HCL 5 MG TAB PO PRN (21:55)
[2021-10-21] VITALS (7 sets, daily range): BP systolic 126–147; BP diastolic 60–71
[2021-10-21] MEDS: 0.9%NACL 1000ML 1,000 ML IV SCH
[2021-10-21 03:42] LABS: HEMATOCRIT 39.3 % (42-54); MEAN CORPUSCULAR HEMOGLOBIN 29.8 pg (27.0-33.0); MEAN CORPUSCULAR HGB CONC 33.8 g/dL (32.0-36.0); MEAN CORPUSCULAR VOLUME 87.9 fL (79-99); RED BLOOD CELL COUNT(AUTO) 4.47 MIL/uL (4.50-6.20); RED CELL DISTRIBUTION WIDTH 13.2 % (11.0-15.5); WHITE BLOOD COUNT (AUTO) 13.1 K/uL (4.8-10.8)
[2021-10-21 03:52] LABS: CREATININE 1.3 mg/dL (0.5-1.5); POTASSIUM 4.2 mmol/L (3.5-5.1)
[2021-10-21] MEDS: ACETAMINOPHEN 500 MG TABLET PO SCH ×3 (06:09→22:00)
[2021-10-21] MEDS: LOSARTAN 50 MG TABLET PO SCH (08:36)
[2021-10-21] MEDS: TAMSULOSIN HCL 0.4 MG CAP.ER.24H PO SCH (08:36)
[2021-10-21] MEDS: PREGABALIN 25 MG CAP PO SCH ×2 (08:36→20:27)
[2021-10-21] MEDS: HYDROCHLOROTHIAZIDE 25 MG TABLET PO SCH (08:36)
[2021-10-21] MEDS: CELECOXIB 200 MG CAP PO SCH ×2 (08:37→20:27)
[2021-10-21] MEDS: POLYETHYLENE GLYCOL 3350 17 GM POWD.PACK PO SCH (08:37)
[2021-10-21] MEDS: APIXABAN 2.5 MG TABLET PO SCH ×2 (08:37→20:27)
[2021-10-21] MEDS: FAMOTIDINE 20MG TAB PO SCH ×2 (08:37→20:27)
[2021-10-21] MEDS: OXYCODONE HCL 5 MG TAB PO PRN (12:48)
[2021-10-21] MEDS: ATORVASTATIN 40 MG TABLET PO SCH (20:27)
[2021-10-22 04:32] VITALS: BP 108/63
[2021-10-22] MEDS: ACETAMINOPHEN 500 MG TABLET PO SCH ×3 (06:25→20:12)
[2021-10-22 08:00] VITALS: BP 125/64
[2021-10-22] MEDS: HYDROCHLOROTHIAZIDE 25 MG TABLET PO SCH (08:05)
[2021-10-22] MEDS: PREGABALIN 25 MG CAP PO SCH ×2 (08:06→20:11)
[2021-10-22] MEDS: FAMOTIDINE 20MG TAB PO SCH ×2 (08:06→20:11)
[2021-10-22] MEDS: LOSARTAN 50 MG TABLET PO SCH (08:06)
[2021-10-22] MEDS: CELECOXIB 200 MG CAP PO SCH ×2 (08:06→20:12)
[2021-10-22] MEDS: APIXABAN 2.5 MG TABLET PO SCH ×2 (08:07→20:11)
[2021-10-22] MEDS: TAMSULOSIN HCL 0.4 MG CAP.ER.24H PO SCH (08:08)
[2021-10-22] MEDS: OXYCODONE HCL 5 MG TAB PO PRN (08:08)
[2021-10-22] MEDS: POLYETHYLENE GLYCOL 3350 17 GM POWD.PACK PO SCH (08:08)
[2021-10-22 12:00] VITALS: BP 130/72
[2021-10-22 16:00] VITALS: BP 112/64
[2021-10-22] MEDS ORDERED: LACTULOSE 20 GM/30 ML UDCUP PO PRN (18:30)
[2021-10-22] MEDS ORDERED: MAGNESIUM CITRATE 296 ML SOLUTION PO ONE (18:30)
[2021-10-22] MEDS ORDERED: HYDR-4060 PO (18:39)
[2021-10-22 20:12] VITALS: BP 102/65
[2021-10-22] MEDS: ATORVASTATIN 40 MG TABLET PO SCH (20:12)
[2021-10-22 23:59] VITALS: BP 114/60
[2021-10-23 04:38] VITALS: BP 102/53
[2021-10-23] MEDS: ACETAMINOPHEN 500 MG TABLET PO SCH ×2 (06:20→13:32)
[2021-10-23 08:00] VITALS: BP 132/51
[2021-10-23] MEDS: TAMSULOSIN HCL 0.4 MG CAP.ER.24H PO SCH (09:00)
[2021-10-23] MEDS: POLYETHYLENE GLYCOL 3350 17 GM POWD.PACK PO SCH (09:00)
[2021-10-23] MEDS: CELECOXIB 200 MG CAP PO SCH (09:05)
[2021-10-23] MEDS: PREGABALIN 25 MG CAP PO SCH (09:05)
[2021-10-23] MEDS: FAMOTIDINE 20MG TAB PO SCH (09:06)
[2021-10-23] MEDS: APIXABAN 2.5 MG TABLET PO SCH (09:06)
[2021-10-23] MEDS: HYDROCHLOROTHIAZIDE 25 MG TABLET PO SCH (09:09)
[2021-10-23] MEDS: LOSARTAN 50 MG TABLET PO SCH (09:11)
[2021-10-23 12:00] VITALS: BP 129/70
[2021-10-23] MEDS ORDERED: BISACODYL 10 MG SUPP.RECT RC PRN (14:00)
== END 2021-10-23 16:05 | disposition home or self-care (01) | DRG 470 ==
LOC: EDSTATUS 09:00 → DAHIP 10-20 08:37 → 4AH 10-20 15:31
PROVIDERS: ADMIT Orthopaedic Surgery; ATTEND Orthopaedic Surgery
PROC: 0SRC0J9 Replacement of Right Knee Joint with Synthetic Substitute, Cemented, Open Approach (ICD-10-PCS; principal; 2021-10-20 10:55)
DX: M17.11 Unilateral primary osteoarthritis, right knee (principal); D64.9 Anemia, unspecified; I48.0 Paroxysmal atrial fibrillation; E78.5 Hyperlipidemia, unspecified; I10 Essential (primary) hypertension; G47.30 Sleep apnea, unspecified; N40.0 Benign prostatic hyperplasia without lower urinary tract symptoms; Z79.01 Long term (current) use of anticoagulants; K21.9 Gastro-esophageal reflux disease without esophagitis; Z86.16 Personal history of COVID-19; Z72.0 Tobacco use; Z88.0 Allergy status to penicillin
CPT/HCPCS: 36415; 80048; 81001; 85025; 85027; 85610; 87088; 87635; 87641; 96374; 97039; G0378; J0330; J0690; J1100; J1885; J2001; J2175; J2250; J2370; J2405; J2704; J2710; J3010; J3370; J3490; J7120

== ENCOUNTER 2021-10-26 09:10 | Emergency (ER) | payer OTHER ==
[~2021-10-26] VITALS: Ht 167.6 cm; Wt 74.8 kg
[~2021-10-26 09:10] MED LIST changes: +ATOR40TA71 PO; +HYDR-4060 PO; +HYDR25TA PO; +LOSA50TA64 PO
[2021-10-26 10:08] LABS: BASOPHILS % (AUTO) 0.4 % (0.0-5.0); EOSINOPHILS % (AUTO) 2.7 % (0.0-8.0); LYMPHOCYTES % (AUTO) 8.8 % (21.0-51.0); MEAN CORPUSCULAR HEMOGLOBIN 29.4 pg (27.0-33.0); MEAN CORPUSCULAR HGB CONC 33.5 g/dL (32.0-36.0); MEAN CORPUSCULAR VOLUME 87.6 fL (79-99); MONOCYTES % (AUTO) 8.1 % (3.0-13.0); NEUTROPHILS % (AUTO) 79.6 % (40.0-77.0); PLATELET COUNT (AUTO) 183 K/uL (130-400); RED BLOOD CELL COUNT(AUTO) 3.88 MIL/uL (4.50-6.20); RED CELL DISTRIBUTION WIDTH 13.3 % (11.0-15.5); WHITE BLOOD COUNT (AUTO) 10.7 K/uL (4.8-10.8)
[2021-10-26 10:10] LABS: APPEARANCE,URINE Clear (CLEAR); BILIRUBIN,URINE Negative (NEGATIVE); COLOR,URINE Yellow (YELLOW); GLUCOSE, URINE (UA) Negative (NEGATIVE); KETONES,URINE Negative (NEGATIVE); LEUKOCYTE ESTERASE ,URINE Negative (NEGATIVE); NITRATE,URINE Negative (NEGATIVE); OCCULT BLOOD,URINE Moderate (NEGATIVE); PROTEIN,URINE Negative (NEGATIVE); UROBILINOGEN,URINE 0.2 mg/dL (0.2-1.0)
[2021-10-26 10:19] LABS: CREATININE 1.9 mg/dL (0.5-1.5); POTASSIUM 3.7 mmol/L (3.5-5.1)
[2021-10-26 10:24] LABS: ALBUMIN 3.4 g/dL (3.5-5.0); BILIRUBIN,TOTAL 1.7 mg/dL (0.2-1.0); TOTAL PROTEIN, SERUM 7.3 g/dL (6.0-8.3)
[2021-10-26 10:27] LABS: BACTERIA,URINE None Seen /HPF (None Seen); SQUAMOUS EPITHELIAL CELL,UR 0-2 /HPF (0-2); WBC,URINE None Seen /HPF (0-1)
[2021-10-26] MEDS ORDERED: 0.9%NACL 1000ML 1,000 ML IV ONE (11:00)
[2021-10-26] MEDS ORDERED: CEFTRIAXONE 1G VIAL IVP SCH (11:00)
[2021-10-26] MEDS ORDERED: CEFTRIAXONE 1G VIAL ONE (11:04)
[2021-10-26] MEDS ORDERED: CEPH500B PO (11:34)
[2021-10-26 12:33] VITALS: BP 155/76
== END 2021-10-26 12:34 | disposition home or self-care (01) ==
LOC: EDH 09:10
DX: R33.9 Retention of urine, unspecified (principal); N17.9 Acute kidney failure, unspecified; N39.0 Urinary tract infection, site not specified; E11.9 Type 2 diabetes mellitus without complications; E78.00 Pure hypercholesterolemia, unspecified; I10 Essential (primary) hypertension; I48.91 Unspecified atrial fibrillation; Z79.01 Long term (current) use of anticoagulants; Z88.0 Allergy status to penicillin; Z88.6 Allergy status to analgesic agent; Z96.651 Presence of right artificial knee joint; Z86.16 Personal history of COVID-19
CPT/HCPCS: 36415; 51702; 80053; 81001; 83605; 85025; 87040 ×2; 93971; 96361; 96374; 99284; J0696; J7030

== ENCOUNTER 2021-12-09 21:24 | Emergency (ER) | payer OTHER ==
[~2021-12-09] VITALS: Ht 172.7 cm; Wt 76.7 kg
[~2021-12-09 21:24] MED LIST changes: +CEPH500B PO
[2021-12-09 22:16] VITALS: BP 145/85
== END 2021-12-09 22:23 | disposition home or self-care (01) ==
LOC: EDH 21:24
DX: R33.9 Retention of urine, unspecified (principal); E78.00 Pure hypercholesterolemia, unspecified; I11.0 Hypertensive heart disease with heart failure; I50.9 Heart failure, unspecified; Z98.890 Other specified postprocedural states; Z88.0 Allergy status to penicillin; Z88.1 Allergy status to other antibiotic agents; Z88.6 Allergy status to analgesic agent; Z79.899 Other long term (current) drug therapy; Z79.01 Long term (current) use of anticoagulants
CPT/HCPCS: 51702

== ENCOUNTER 2022-08-10 08:25 | Emergency (ER) | payer OTHER ==
[~2022-08-10] VITALS: Ht 172.7 cm; Wt 77.1 kg
[2022-08-10 08:56] LABS: BASOPHILS % (AUTO) 0.7 % (0.0-5.0); EOSINOPHILS % (AUTO) 2.7 % (0.0-8.0); HEMATOCRIT 43.6 % (42-54); LYMPHOCYTES % (AUTO) 23.3 % (21.0-51.0); MEAN CORPUSCULAR HEMOGLOBIN 29.7 pg (27.0-33.0); MEAN CORPUSCULAR HGB CONC 33.9 g/dL (32.0-36.0); MEAN CORPUSCULAR VOLUME 87.6 fL (79-99); MONOCYTES % (AUTO) 7.6 % (3.0-13.0); NEUTROPHILS % (AUTO) 65.3 % (40.0-77.0); PLATELET COUNT (AUTO) 158 K/uL (130-400); RED BLOOD CELL COUNT(AUTO) 4.98 MIL/uL (4.50-6.20); RED CELL DISTRIBUTION WIDTH 13.2 % (11.0-15.5); WHITE BLOOD COUNT (AUTO) 5.7 K/uL (4.8-10.8)
[2022-08-10 09:05] LABS: CREATININE 1.2 mg/dL (0.5-1.5)
[2022-08-10 09:10] LABS: ALBUMIN 3.5 g/dL (3.5-5.0)
[2022-08-10 10:50] VITALS: BP 166/88
[2022-08-10] MEDS ORDERED: LOSARTAN 50 MG TABLET ONE (10:51)
[2022-08-10] MEDS ORDERED: LOSARTAN 50 MG TABLET PO SCH (11:00)
== END 2022-08-10 11:20 | disposition home or self-care (01) ==
LOC: EDH 08:25
DX: I11.0 Hypertensive heart disease with heart failure (principal); I50.9 Heart failure, unspecified; I48.91 Unspecified atrial fibrillation; E78.00 Pure hypercholesterolemia, unspecified; Z79.01 Long term (current) use of anticoagulants; Z79.899 Other long term (current) drug therapy; Z88.6 Allergy status to analgesic agent; Z88.0 Allergy status to penicillin
CPT/HCPCS: 36415; 80053; 84484; 85025; 93005